=== PATIENT | male | born 2000 | race Caucasian/White ===

== ENCOUNTER 2019-06-30 04:13 | Emergency (ER) | payer SELFPAY ==
[~2019-06-30] VITALS: Ht 182.9 cm; Wt 81.8 kg
[2019-06-30 04:17] VITALS: Ht 182.9 cm; Wt 81.8 kg
[2019-06-30 04:58] VITALS: BP 141/76
== END 2019-06-30 04:58 | disposition home or self-care (01) ==
LOC: D.ER 04:13
DX: B82.9 Intestinal parasitism, unspecified (principal)

== ENCOUNTER 2019-10-26 19:20 | Emergency (ER) | payer SELFPAY ==
[2019-06-30 04:17] VITALS: BMI 24.4
== END 2019-10-26 20:20 | disposition left against medical advice (07) ==
LOC: D.ER 19:20
DX: R07.9 Chest pain, unspecified (principal)

== ENCOUNTER 2019-10-26 20:32 | Emergency (ER) | payer SELFPAY ==
[~2019-10-26] VITALS: Ht 182.9 cm; Wt 113.6 kg
[2019-10-26 20:38] VITALS: Ht 182.9 cm; Wt 113.6 kg
--- NOTE | 2019-10-26 21:11 | NUR ---
DR. PETERS NOTIFIED AND REVIEWED PT'S BEHAVIOR AND ASSESSMENT RESULTS. PT IS A LOW RISK PER DR. PETERS. DR. PETERS STATED TO GIVE RESOURCES TO PT AT TIME OF DISCHARGE. NO FURTHER ORDERS AT THIS TIME. RESOURCES REVIEWED WITH PT AND HE VERBALIZED UNDERSTANDING.
[2019-10-26 21:54] LABS: BASOPHILS 0.4 % (0-2); EOSINOPHILS 1.9 % (0-7); HEMATOCRIT 42.7 % (42.0-54.0); HEMOGLOBIN 15.2 g/dL (13.5-17.5); IMMATURE GRANULOCYTES 0.1 % (0-5); LYMPHOCYTES 32.8 % (15-50); MCH 31.7 pg (26.0-34.0); MCHC 35.6 g/dL (31.0-37.0); MCV 89.1 fL (80.0-100.0); MEAN PLATELET VOLUME 9.9 fL (7.4-10.4); MONOCYTES 9.2 % (2-11); NEUTROPHILS 55.6 % (40-80); PLATELET COUNT 218 10x3/uL (130-400); RBC 4.79 10x6/uL (4.20-6.10); RDW 12.7 % (11.5-14.5); WBC 7.4 10x3/uL (4.8-10.8)
[2019-10-26 22:04] LABS: APTT 32.9 SECONDS (22.8-39.4); INR 1.01 (0.85-1.17); PROTIME 13.3 SECONDS (11.6-15.0)
[2019-10-26 22:08] LABS: CALC OSMOLALITY 286 mosm/kg (275-300); CALCIUM 8.7 mg/dL (8.5-10.1); CHLORIDE - SERUM 107 mmol/L (98-107); CREATININE - SERUM 0.9 mg/dL (0.6-1.3); GLUCOSE 75 mg/dL (74-106); POTASSIUM - SERUM 3.8 mmol/L (3.5-5.1); SODIUM 144 mmol/L (136-145); UREA NITROGEN 15 mg/dL (7-18); eGFR NON AFRICAN AMERICAN > 90 mL/min (90-120)
[2019-10-26 22:26] LABS: ALBUMIN 3.9 g/dL (3.4-5.0); ALKALINE PHOSPHATASE 87 U/L (30-120); ALT (SGPT) 94 U/L (10-68); BILIRUBIN - TOTAL 0.37 mg/dL (0.2-1.3); CKMB 1.1 U/L (0.0-3.6); CREATINE KINASE 219 UL (21-232); MAGNESIUM - SERUM 1.7 mg/dL (1.8-2.4); PROTEIN - SERUM 7.3 g/dL (6.4-8.2)
[2019-10-26 22:27] LABS: TROPONIN-I < 0.017 ng/mL (0.000-0.060)
[2019-10-26 22:43] VITALS: BP 155/80
== END 2019-10-26 23:42 | disposition home or self-care (01) ==
LOC: D.ER 20:32
PROVIDERS: Family Medicine
DX: R07.89 Other chest pain (principal)

== ENCOUNTER 2020-04-22 21:44 | Emergency (ER) | payer SELFPAY ==
[~2020-04-22] VITALS: Ht 182.9 cm; Wt 113.6 kg
[2020-04-22 22:08] VITALS: BP 143/93; Ht 182.9 cm; Wt 113.6 kg
[2020-04-22 22:33] LABS: BASOPHILS 0.3 % (0-2); EOSINOPHILS 1.4 % (0-7); HEMATOCRIT 43.5 % (42.0-54.0); HEMOGLOBIN 15.3 g/dL (13.5-17.5); IMMATURE GRANULOCYTES 0.3 % (0-5); LYMPHOCYTES 34.8 % (15-50); MCH 31.4 pg (26.0-34.0); MCHC 35.2 g/dL (31.0-37.0); MCV 89.1 fL (80.0-100.0); MEAN PLATELET VOLUME 9.8 fL (7.4-10.4); MONOCYTES 6.8 % (2-11); NEUTROPHILS 56.4 % (40-80); PLATELET COUNT 214 10x3/uL (130-400); RBC 4.88 10x6/uL (4.20-6.10); RDW 12.3 % (11.5-14.5); WBC 9.3 10x3/uL (4.8-10.8)
[2020-04-22 22:44] LABS: APTT 31.4 SECONDS (22.8-39.4); INR 0.98 (0.85-1.17)
[2020-04-22 22:45] LABS: CALC OSMOLALITY 277 mosm/kg (275-300); CALCIUM 8.7 mg/dL (8.5-10.1); CARBON DIOXIDE 26.3 mmol/L (21.0-32.0); CHLORIDE - SERUM 101 mmol/L (98-107); CREATININE - SERUM 0.8 mg/dL (0.6-1.3); GLUCOSE 109 mg/dL (74-106); POTASSIUM - SERUM 3.4 mmol/L (3.5-5.1); SODIUM 138 mmol/L (136-145); UREA NITROGEN 15 mg/dL (7-18); eGFR NON AFRICAN AMERICAN > 90 mL/min (90-120)
[2020-04-22 22:53] LABS: ALBUMIN 3.9 g/dL (3.4-5.0); ALKALINE PHOSPHATASE 99 U/L (30-120); ALT (SGPT) 104 U/L (10-68); BILIRUBIN - TOTAL 0.24 mg/dL (0.2-1.3); LIPASE 169 U/L (73-393); PROTEIN - SERUM 7.5 g/dL (6.4-8.2)
[2020-04-22 22:55] LABS: BILIRUBIN NEGATIVE (NEGATIVE); KETONE NEGATIVE (NEGATIVE); NITRITE NEGATIVE (NEGATIVE); UROBILINOGEN NORMAL mg/dL (< 2)
[2020-04-22 22:55] LABS: TROPONIN-I < 0.017 ng/mL (0.000-0.060)
[2020-04-22 23:03] LABS: UDS - AMPHET NEGATIVE QUAL (NEGATIVE); UDS - BARB NEGATIVE QUAL (NEGATIVE); UDS - BENZO NEGATIVE QUAL (NEGATIVE); UDS - COCAINE NEGATIVE QUAL (NEGATIVE); UDS - OPIATE NEGATIVE QUAL (NEGATIVE); UDS - PCP NEGATIVE QUAL (NEGATIVE); UDS - THC POSITIVE QUAL (NEGATIVE)
== END 2020-04-22 23:46 | disposition left against medical advice (07) ==
LOC: D.ER 21:44
PROVIDERS: Family Medicine
DX: F10.129 Alcohol abuse with intoxication, unspecified (principal); F10.10 Alcohol abuse, uncomplicated; Z91.19 Patient's noncompliance with other medical treatment and regimen

== ENCOUNTER 2020-10-23 23:20 | Emergency (ER) | payer SELFPAY ==
[~2020-10-23] VITALS: Ht 182.9 cm; Wt 95.5 kg
[~2020-10-23 23:20] MED LIST: NAPROSYN500 MG PO
[2020-10-23 23:24] VITALS: Ht 182.9 cm; Wt 95.5 kg
[2020-10-23] MEDS ORDERED: VYVANSE20 MG PO (23:27)
[2020-10-23 23:46] LABS: BILIRUBIN NEGATIVE (NEGATIVE); KETONE SMALL mg/dL (NEGATIVE); NITRITE NEGATIVE (NEGATIVE)
[2020-10-23 23:52] LABS: UDS - AMPHET POSITIVE QUAL (NEGATIVE); UDS - BARB NEGATIVE QUAL (NEGATIVE); UDS - BENZO NEGATIVE QUAL (NEGATIVE); UDS - COCAINE NEGATIVE QUAL (NEGATIVE); UDS - OPIATE NEGATIVE QUAL (NEGATIVE); UDS - PCP NEGATIVE QUAL (NEGATIVE); UDS - THC POSITIVE QUAL (NEGATIVE)
[2020-10-24 00:17] LABS: BASOPHILS 0.4 % (0-2); EOSINOPHILS 1.2 % (0-7); HEMATOCRIT 45.7 % (42.0-54.0); IMMATURE GRANULOCYTES 0.1 % (0-5); MCH 31.3 pg (26.0-34.0); MCV 89.4 fL (80.0-100.0); MEAN PLATELET VOLUME 9.7 fL (7.4-10.4); MONOCYTES 9.6 % (2-11); NEUTROPHIL ABS# 4.08 10x3/uL (1.78-5.38); NEUTROPHILS 49.7 % (40-80); PLATELET COUNT 230 10x3/uL (130-400); RBC 5.11 10x6/uL (4.20-6.10); RDW 12.4 % (11.5-14.5); WBC 8.2 10x3/uL (4.8-10.8)
[2020-10-24 00:26] LABS: CALC OSMOLALITY 277 mosm/kg (275-300); CALCIUM 8.6 mg/dL (8.5-10.1); CARBON DIOXIDE 27.3 mmol/L (21.0-32.0); CHLORIDE - SERUM 102 mmol/L (98-107); CREATININE - SERUM 0.9 mg/dL (0.6-1.3); GLUCOSE 106 mg/dL (74-106); POTASSIUM - SERUM 3.6 mmol/L (3.5-5.1); SODIUM 138 mmol/L (136-145); UREA NITROGEN 19 mg/dL (7-18); eGFR NON AFRICAN AMERICAN > 90 mL/min (90-120)
[2020-10-24 00:33] LABS: ALBUMIN 4.2 g/dL (3.4-5.0); ALKALINE PHOSPHATASE 96 U/L (30-120); ALT (SGPT) 81 U/L (10-68); BILIRUBIN - TOTAL 0.56 mg/dL (0.2-1.3); MAGNESIUM - SERUM 2.1 mg/dL (1.8-2.4); PROTEIN - SERUM 7.3 g/dL (6.4-8.2)
[2020-10-24 01:01] LABS: SARS-CoV-2 ANTIGEN NEGATIVE- SARS-COV-2 (NEGATIVE)
[2020-10-24 01:55] VITALS: BP 144/90
== END 2020-10-24 01:56 | disposition home or self-care (01) ==
LOC: D.ER 23:20
PROVIDERS: Family Medicine
DX: F23 Brief psychotic disorder (principal); R44.0 Auditory hallucinations

== ENCOUNTER 2021-01-19 22:34 | Emergency (ER) | payer SELFPAY ==
[~2021-01-19] VITALS: Ht 182.9 cm; Wt 113.6 kg
[~2021-01-19 22:34] MED LIST changes: +VYVANSE20 MG PO
[2021-01-19 22:45] VITALS: BP 127/93; Ht 182.9 cm; Wt 113.6 kg
== END 2021-01-20 06:59 | disposition home or self-care (01) ==
LOC: D.ER 22:34
DX: S51.812A Laceration without foreign body of left forearm, initial encounter (principal); X78.9XXA Intentional self-harm by unspecified sharp object, initial encounter; Y93.9 Activity, unspecified; Y92.9 Unspecified place or not applicable